=== PATIENT | male | born 1955 | race Caucasian/White ===

== ENCOUNTER 2018-08-16 07:38 | Day surgery (SDC) | payer OTHER, SELFPAY ==
[2018-08-15 12:51] VITALS: BMI 40.3
[2018-08-16] VITALS (10 sets, daily range): BP systolic 138–170; BP diastolic 80–97; PULSE 67–91; RESP 11–17; TEMP 36.6–36.8; O2SAT 91–98; BMI 40.3
[2018-08-16] MEDS: LACTATED RINGERS 1,000 ML 42 ML IV (08:21)
[2018-08-16] MEDS: CELECOXIB 200 MG CAPSULE 400 MG PO (08:23)
--- NOTE | 2018-08-16 09:38 | PM.PREOP ---
Pre-operative Note Interval Note Pre-op Check: Yes History & Physical Reviewed by Physician and Yes Exam Performed Changes: No
--- NOTE | 2018-08-16 09:38 | PM.OP.1 ---
Operative Date/Time/Diagnoses Date of procedure: 08/16/18 Pre-op diagnosis: Right shoulder bursitis, partial thickness rotator cuff tear and AC joint arthritis Post-op diagnosis: other (Right shoulder bursitis, greater than 50% biceps tendon tearing and AC joint arthritis) Procedure & Clinicians Procedure: Arthroscopic subacromial decompression biceps tenotomy and distal clavicle excision Same procedure as scheduled: Yes Indications: The patient presents today for right shoulder arthroscopy after failure of conservative treatment. Subacromial decompression and distal clavicle are planned. Rotator cuff or other repairs may be indicated depending on intraoperative findings. The nature of the procedure including the risks and benefits, alternatives, postoperative course and expected outcome were discussed and all questions answered. Consent was obtained. Operative site confirmed and marked. Surgeon: Leroy Waters Procurement Forester: Raine Guerra Anesthesia Type: General, Peripheral nerve block and Local Operative Notes Findings: No significant tearing of the rotator cuff was seen from the bursal or articular side. There was tearing of the biceps tendon which appeared to be greater than 50%. The biceps tenotomy was performed. Minimal chondromalacia of the glenohumeral joint. Labrum was intact. There was significant subacromial bursitis in the subacromial space. A standard acromioplasty was performed along with a distal clavicle excision. A combination of 8-10 mm of distal clavicle and medial acromion was resected to nicely decompressed the AC joint. Closure Type: primary Specimen(s): none sent Procedure in detail: The patient was taken the operative suite and placed under general anesthesia with a scalene block and given prophylactic antibodies prior to surgery. The patient was then positioned in the lateral decubitus position on a beanbag and with an axillary roll. The arm was suspended with 10 pounds of weight. The acromion and coracoid as well as the expected portal sites were all marked. The shoulder was then injected with 20 mL of 1% lidocaine with epinephrine. The arm was then prepped and draped in usual sterile fashion. The joint was then filled with 20 mL of saline through the proposed posterior portal site. The posterior portal was then established and the scope placed bluntly into the glenohumeral joint. An anterior portal was then established from an outside in technique with a spinal needle. The glenohumeral joint was then inspected (see findings above). The scope was then switched to the subacromial space. A standard bursectomy and anterior/lateral chondroplasty was performed with a shaver and bur. The subacromial space was well decompressed. A distal clavicle excision was performed through the anterior portal. A combination of medial acromion and distal clavicle resection was done to create a 8-10 mm space. This nicely decompressed the AC joint. The primary impingement initially seemed to be at the posterior aspect of the joint. The arthroscopy was then completed and the shoulder drained. The portal sites were closed with interrupted 3-0 nylon suture. Subacromial space was filled with 20 mL of 0.5% ropivacaine and 4 of morphine. Sterile gauze dressings were then applied. The shoulder was placed into a sling. The patient tolerated the procedure well and was returned recovery room in good condition. Condition: stable Disposition: same day surgery Plan for aftercare: Sling for comfort. May slowly progressed shoulder activity as tolerated. Clinic follow-up in 2 weeks.
[2018-08-16] MEDS: MIDAZOLAM 2 MG/2 ML VIAL IV (10:08)
[2018-08-16] MEDS: fentaNYL 100 MCG/2 ML INJ 50 MCG IV (10:08)
--- NOTE | 2018-08-16 10:16 | SUR.PREOP ---
Block start time [1008] . Monitoring initiated and maintained throughout procedure. Oxygen and medications given per anesthesiologist instructions. Patient remained stable throughout procedure, no adverse reactions noted. Block end time 1012[].
[2018-08-16] MEDS: CEFAZOLIN 2 GM/100 ML FROZ.PIGGY IV (10:19)
--- NOTE | 2018-08-16 11:04 | SUR.OPER ---
Lateral on padded OR bed with oleary bag positioner, head on pillow, gel axillary roll in place, bottom leg bent with gel pad under knee to foot, upper leg straight and supported with pillows. Operative arm secured in shoulder positioning suspension device. non-operative arm secured on padded arm board. Safety belt at hip, tape over blanket securing lower legs.
--- NOTE | 2018-08-16 11:14 | PM.PROC.1 ---
Procedures Date/Time Date of procedure: 08/16/18 Time of procedure: 10:00 Nerve Block Time out performed: Yes Local anesthetic used: other (15mL 0.5pivacaine, 5mL 2 idocaine) Location of anesthetic used: interscalene Amount of anesthesia used (mL): 20 Nerve blocks: brachial plexus (interscalene) Procedure successful: Yes Patient tolerated procedure: well Complications: none Additional comments: RIGHT Brachial plexus nerve block for post operative pain management. Risks and benefits discussed, including bleeding, infection, intravascular injection, nerve damage, block failure. Standard ASA monitors, NC O2. Pt supine. Chloroprep site preparation, sterile technique. Brachial plexus identified with US guidance, traced from supraclavicular to interscalene. 1mL 2% lidocaine skin wheal. 22g x 50mm Pajunk advanced with in-plane US guidance to brachial plexus. Negative aspiration. LA injected with intermittent negative aspiration. Good LA spread noted on US. No pain, no paraesthesia. Pt tolerated procedure well. Vital signs stable.
--- NOTE | 2018-08-16 11:17 | P.PCN_ITS ---
Procedures Date/Time Date of procedure: 08/16/18 Time of procedure: 10:00 Nerve Block Time out performed: Yes Local anesthetic used: other (15mL 0.5 opivacaine, 5mL 2* idocaine) Location of anesthetic used: interscalene Amount of anesthesia used (mL): 20 Nerve blocks: brachial plexus (interscalene) Procedure successful: Yes Patient tolerated procedure: well Complications: none Additional comments: RIGHT Brachial plexus nerve block for post operative pain management. Risks and benefits discussed, including bleeding, infection, intravascular injection, nerve damage, block failure. Standard ASA monitors, NC O2. Pt supine. Chloroprep site preparation, sterile technique. Brachial plexus identified with US guidance, traced from supraclavicular to interscalene. 1mL 2% lidocaine skin wheal. 22g x 50mm Pajunk advanced with in- plane US guidance to brachial plexus. Negative aspiration. LA injected with intermittent negative aspiration. Good LA spread noted on US. No pain, no paraesthesia. Pt tolerated procedure well. Vital signs stable.
[2018-08-16] MEDS: SODIUM CHLORIDE IRRIG SOLUTION 3,000 ML, EPINEPHrine 1 MG IRR (11:48)
[2018-08-16] MEDS: LIDOCAINE 1% W/EPI INJ 20 ML INJ (11:48)
[2018-08-16] MEDS: BUPIVACAINE 0.25% W/ EPI VIAL 50 ML INJ (12:03)
--- NOTE | 2018-08-16 12:41 | SUR.PHASEI ---
Assumed care. VS stable. Drsg cdi. Ice inplace. Pt clearing throat frequently, ice chips provided.
[2018-08-16] MEDS: HYDROMORPHONE 2 MG INJ 0.5 MG IV ×4 (12:43→13:27)
--- NOTE | 2018-08-16 12:49 | SUR.PHASEI ---
Pt saying water, not moving lt arm when offered water. Opened eyes slowly when asked. Able to sip water with assistance.
--- NOTE | 2018-08-16 13:05 | SUR.PHASEI ---
Pt stated I feel like somethings choking me. O2 tubing removed. Sling repositioned for comfort. Pt stated he felt like he was tied down and spoke about beating. Pt reassured that he was not tied down. Pt reported having bad memories but denied being hurt at home at this time.
[2018-08-16] MEDS: OXYCODONE IR 5 MG TABLET PO (14:15)
== END 2018-08-16 14:55 | disposition home or self-care (01) ==
PROVIDERS: Visit Provider Orthopaedic Surgery
PROC: (CPT 29805; principal; 2018-08-16 10:00)
DX: M75.41 Impingement syndrome of right shoulder (principal); M19.011 Primary osteoarthritis, right shoulder; G89.18 Other acute postprocedural pain
CPT/HCPCS: 29824; 29826; 64415; J0171; J0330; J0690; J1170; J2250; J2405; J2704; J3010

== ENCOUNTER 2018-11-06 05:42 | Day surgery (SDC) | payer OTHER, SELFPAY ==
[2018-10-04 12:48] VITALS: BMI 40.3
[2018-11-06] VITALS (11 sets, daily range): BP systolic 143–175; BP diastolic 70–99; PULSE 64–90; RESP 12–17; TEMP 36.1–36.6; O2SAT 90–96; BMI 38.8
[2018-11-06] MEDS: LACTATED RINGERS 1,000 ML 42 ML IV (07:06)
[2018-11-06] MEDS: CELECOXIB 200 MG CAPSULE 400 MG PO (07:42)
[2018-11-06] MEDS: CEFAZOLIN 2 GM/100 ML FROZ.PIGGY IV (07:45)
--- NOTE | 2018-11-06 07:49 | PM.PREOP ---
Pre-operative Note Interval Note History & Physical reviewed/Exam performed by Physician: Yes Changes to H&P: No
--- NOTE | 2018-11-06 07:53 | P.OP_ITS ---
Operative Date/Time/Diagnoses Date of procedure: 11/06/18 Time of procedure: 09:20 Pre-op diagnosis: Impingement syndrome, partial thickness tearing of the biceps tendon and AC joint arthritis left shoulder Post-op diagnosis: same Procedure & Clinicians Procedure: Arthroscopic subacromial decompression, biceps tenotomy and distal clavicle excision left shoulder Same procedure as scheduled: Yes Indications: The patient presents today for left shoulder arthroscopy with subacromial decompression and distal clavicle excision after failure of conservative treatment. Other procedures may be performed as indicated by the surgical findings. The nature of the procedure including the risks and benefits , alternatives, postoperative course and expected outcome were discussed and all questions answered. Consent was obtained. Operative site confirmed and marked. Surgeon: Leroy Waters Educational Assistant Teacher: Alex Grey Anesthesia Type: General and Local Operative Notes Findings: Examination under anesthesia was unremarkable. Arthroscopic evaluation revealed significant partial-thickness tearing of the biceps tendon which was at least 50%. A biceps tenotomy was performed. There was no evidence of any significant rotator cuff tearing on the articular or bursal side. Minimal chondromalacia. The AC joint was hypertrophic with significant prominence into the joint. The capsule was also ruptured. There is just mild prominence of the anterior acromion. Standard subacromial decompression and bursectomy was performed. A distal clavicle incision was performed. A space of approximately 10 mm was created with resection of both the distal clavicle and medial acromion. The subacromial space and AC joint were well decompressed at the end of the procedure. Closure Type: primary Specimen(s): none sent Estimated Blood Loss (mL): 10 Blood products transfused: none Procedure in detail: The patient was taken the operative suite and placed under general anesthesia and given prophylactic antibodies prior to surgery. The patient was then positioned in the lateral decubitus position on a beanbag and with an axillary roll. The arm was suspended with 10 pounds of weight. The acromion and coracoid as well as the expected portal sites were all marked. The shoulder was then injected with 20 mL of 1% lidocaine with epinephrine. The arm was then prepped and draped in usual sterile fashion. The joint was then filled with 20 mL of saline through the proposed posterior portal site. The posterior portal was then established and the scope placed bluntly into the glenohumeral joint. An anterior portal was then established from an outside in technique with a spinal needle. The glenohumeral joint was then inspected (see findings above). A biceps tenotomy was performed with a basket and shaver. The stump was completely resected. The labrum was mildly frayed but intact. There is just mild chondromalacia of the glenohumeral joint. No rotator cuff tearing was identified. The scope was then switched to the subacromial space. A standard bursectomy and anterior/lateral chondroplasty was performed with a shaver and bur. The AC joint was quite prominent with an incompetent capsule. Distal clavicle excision was performed. A 10 mm space was made with a combination of resection of the distal clavicle and medial acromion. The subacromial space and AC joint were well decompressed. The arthroscopy was then completed and the shoulder drained. The portal sites were closed with interrupted 3-0 nylon suture. Subacromial space was filled with [20 mL of 0.5% ropivacaine and 4 of morphine]. Sterile gauze dressings were then applied. The shoulder was placed into a sling. The patient tolerated the procedure well and was returned recovery room in good condition. Complications: none Condition: stable Disposition: same day surgery Plan for aftercare: Discharged to home. Sling for comfort. May slowly progress activity as tolerated. Physical therapy to start within 1-2 weeks from surgery. Clinic follow-up in 2 weeks.
[2018-11-06] MEDS: BUPIVACAINE 0.5% W/ EPI (PF) VIAL 30 ML INJ (08:00)
[2018-11-06] MEDS: LIDOCAINE 1% W/EPI INJ 20 ML INJ (08:00)
[2018-11-06] MEDS: DEXAMETHASONE 10 MG/ML VIAL IV (08:32)
[2018-11-06] MEDS: SODIUM CHLORIDE IRRIG SOLUTION 3,000 ML, EPINEPHrine 1 MG IRR (08:35)
[2018-11-06] MEDS: ROPIVACAINE 0.5% PF 5 MG/ML 20ML AMP 10 ML INJ (09:15)
[2018-11-06] MEDS: HYDROMORPHONE 2 MG INJ 0.5 MG IV ×4 (09:36→09:55)
[2018-11-06] MEDS: hydrOXYzine pamoate 25 MG CAPSULE 50 MG PO (09:51)
[2018-11-06] MEDS: fentaNYL 100 MCG/2 ML INJ 50 MCG IV (10:04)
[2018-11-06] MEDS: MORPHINE 10 MG/ML INJ 4 MG IV ×2 (10:11→10:16)
[2018-11-06] MEDS: OXYCODONE/ACETAMINOPHEN 5/325 TABLET 1 TAB PO ×2 (10:20→10:48)
--- NOTE | 2018-11-06 12:19 | SUR.PHASEII ---
pt voided 240cc urine at 1140, dsg dci, no co's of n/v, ice to surgical area, family at side
== END 2018-11-06 12:14 | disposition home or self-care (01) ==
PROVIDERS: Visit Provider Orthopaedic Surgery
PROC: (CPT 29805; principal; 2018-11-06 07:45)
DX: M19.012 Primary osteoarthritis, left shoulder (principal); M75.52 Bursitis of left shoulder; M75.42 Impingement syndrome of left shoulder; M94.212 Chondromalacia, left shoulder; E11.9 Type 2 diabetes mellitus without complications; Z79.84 Long term (current) use of oral hypoglycemic drugs
CPT/HCPCS: 29823; 29826; 29824; J0171; J0330; J0690; J1100; J1170; J2270; J2405; J2704; J2795; J3010